=== PATIENT | male | born 2000 | race Caucasian/White ===

== ENCOUNTER → 2024-03-06 13:32 | Outpatient (REF) | payer OTHER, SELFPAY | LOC: RAD 13:32 | PROVIDERS: ATTENDING PHYSICIAN Orthopaedic Surgery | DX: S43.005A Unspecified dislocation of left shoulder joint, initial encounter (principal) | CPT/HCPCS: 23350; 73040; 73222 ==

== ENCOUNTER → 2024-07-17 09:18 | Outpatient (REF) | payer OTHER, SELFPAY | LOC: HWRAD 09:18 | PROVIDERS: ATTENDING PHYSICIAN Nurse Practitioner Family; FAMILY PHYSICIAN Nurse Practitioner Family | DX: R59.9 Enlarged lymph nodes, unspecified (principal) | CPT/HCPCS: 76536 ==